=== PATIENT | female | born 1965 | race Caucasian/White ===

== ENCOUNTER 2021-06-29 04:06 | Inpatient (IN) | payer SELFPAY ==
[2021-06-29] VITALS (17 sets, daily range): BP systolic 94–133; BP diastolic 55–79; PULSE 68–96; RESP 16–27; TEMP 36.4–37.1; O2SAT 90–98; BMI 22.6; BMI 24.3
--- NOTE | 2021-06-29 04:08 | ECG_ITS ---
[facility] Test Date: 2021-06-29 Pat Name: Nicole Houston Department: Room: 252 Gender: Female Child And Family Therapist: : [id number] Requested By: Alejandrina Parker Order Number: [id number] Reading MD: oDnte Weller M.D. Measurements Intervals [place] Rate: 89 P: 12 IN: 122 QRS: 48 QRSD: 79 T: 52 QT: 378 QTc: 462 Interpretive Statements SINUS RHYTHM LOW QRS VOLTAGE IN PRECORDIAL LEADS [QRS DEFLECTION < 1.0 mV IN CHEST LEADS] No previous ECG available for comparison Electronically Signed On 06-29-2021 23:20:37 CDT by Donte Weller M.D. [id number]
--- NOTE | 2021-06-29 04:08 | XRR_ITS ---
PROCEDURE INFORMATION: Exam: XR Chest Exam date and time: 06/29/2021 4:20 AM Age: 55 years old Clinical indication: Patient HX: General weakness. Patient states she is dehydrated. Patient appears jaundiced. TECHNIQUE: Imaging protocol: XR of the chest. Views: 1 view. COMPARISON: No relevant prior studies available. FINDINGS: Lungs: Mildly increased lung markings. No consolidation. Pleural spaces: Unremarkable. No pleural effusion. No pneumothorax. Heart/Mediastinum: Unremarkable. No cardiomegaly. Bones/joints: Degenerative changes of the spine seen. Old healed rib fracture deformities are seen bilaterally. XR/XR chest 1V portable [id number] IMPRESSION: No evidence of active cardiopulmonary disease.
--- NOTE | 2021-06-29 04:19 | ED_ITS ---
HPI - Weakness General: Chief complaint: Weakness Stated complaint: DEHYDRATION Time Seen by Provider: 06/29/21 04:08 Source: patient and EMS Mode of arrival: EMS Limitations: no limitations History of Present Illness: 55-year-old female states that over the last few days she has been having increasing fatigue. She just feels very tired and generally weak. She states she is concerned she may have been dehydrated she was urinating more than typical. She does a appear quite pale here she denies any history of anemia. She denies any blood in her stool or vomitus denies any change in her stool color and has not had any black tarry stools. Associated symptoms: Denies chest pain, dysuria, easy bruising, headache(s), nausea or vomiting Review of Systems Const: Reports: fatigue and malaise Eyes: Denies: blurry vision or eye discomfort ENMT: Denies: throat pain or dental pain Card: Denies: chest pain Resp: Denies: dyspnea GI: Denies: abdominal pain, nausea, vomiting or diarrhea : Denies: dysuria Musc: Denies: neck pain or back pain Skin/Breast: Denies: rash Neuro: Denies: headache(s) Psych: Denies: depression Mehran/Lymph: Denies: easy bruising All/Imm: Denies: urticaria PFSH ED PFSH: Medical History (Updated 06/29/21 @ 04:47 by Alejandrina Parker MD) No pertinent past medical history Social History (Updated 06/29/21 @ 04:20 by Alejandrina Parker MD) Smoking and tobacco status: never smoked Substance/Drug Use: never Physical Exam Const: COMMON NORMALS: patient oriented x3 HENMT: COMMON NORMALS: normocephalic and atraumatic HEAD & SCALP: normocephalic and atraumatic Eye: COMMON NORMALS: Equal, round and reactive pupils present and EOMs intact bilaterally PUPIL: Yes Equal, round and reactive pupils present Neck/C-Spine: COMMON NORMALS: full ROM and supple Chest: COMMONS NORMALS: normal inspection of the chest and normal palpation of entire chest wall Resp: COMMON NORMALS: normal respiratory effort, No retractions, No use of accessory muscles and clear to auscultation bilaterally AUSCULTATION: clear to auscultation bilaterally Cardio: COMMON NORMALS: regular rate, regular rhythm and No murmurs present (Cardio) RATE: regular rate RHYTHM: regular rhythm GI: COMMON NORMALS: Normal to inspection, nondistended, normoactive bowel sounds present, Soft to palpation, non-tender and no masses PALPATION: Yes Soft to palpation Extremity: COMMON NORMALS: normal to inspection and full ROM Neuro: COMMON NORMALS: patient oriented x3, moves all extremities and no focal motor deficits Psych: COMMON NORMALS: mental status grossly normal, Normal thought process present and cooperative THOUGHT PROCESS: Normal thought process present Skin: COMMON NORMALS: no rashes or lesions noted and no wounds NARRATIVE SKIN EXAM: pale GENERAL SKIN EXAM: no rashes or lesions noted Course Vital Signs: Vital signs: Vital Signs Temperature 98.1 F 06/29/21 04:07 Pulse Rate 91 06/29/21 04:07 Respiratory Rate 20 H 06/29/21 04:07 Blood Pressure 105/62 06/29/21 04:07 Pulse Oximetry 90 06/29/21 04:07 MDM - Weakness Medical Decision Making The penisPatient presents here with generalized weakness she is found to be quite anemic with has had an elevated alk phos she has some abdominal distention on scan I am concerned she could have cancer we will CT her chest and abdomen I think her anemia is been chronic as her heart rate and blood pressure here is normal I spoke to hospitalist will admit we will transfuse her. Lab Data : 06/29/21 04:22 06/29/21 04:22 Laboratory Results WBC 23.6 10^3/uL (4.0-10.0) H 06/29/21 04:22 Corrected WBC 22.1 10^3/cmm (4.8-10.8) H 06/29/21 04:22 RBC 1.16 10^6/uL (4.1-5.3) L 06/29/21 04:22 Hgb 3.9 g/dL (11.5-15.3) L* 06/29/21 04:22 Hct 12.5 % (37.0-47.0) L* 06/29/21 04:22 MCV 107.8 fl (81-99) H 06/29/21 04:22 MCH 33.6 pg (28.0-34.0) 06/29/21 04:22 MCHC 31.2 g/dL (30.0-36.0) 06/29/21 04: RDW 23.2 % (12.1-15.1) H 06/29/21 04:22 Plt Count 39 10^3/cmm (130-400) L 06/29/21 04:22 MPV 12.0 fL (7.4-10.4) H 06/29/21 04:22 Lymph % (Auto) Not Reportable 06/29/21 04:22 [place] % (Auto) Not Reportable 06/29/21 04:22 Lymph # (Auto) Not Reportable 06/29/21 04:22 [place] # (Auto) Not Reportable 06/29/21 04:22 Total Counted 100 (0-100) 06/29/21 04: Atypical Lymphs % 1.0 % (0-5) 06/29/21 04: Absolute Neutrophils 11.1 10^3/cmm (1.4-6.5) H 06/29/21 04: Segmented Neutrophils 40 % 06/29/21 04: Abs Segm Neuts (Man) 9.4 10/cmm (1.6-7.1) H 06/29/21 04:22 Band Neutrophils 7.0 % 06/29/21 04:22 Abs Band Neuts (Man) 1.7 10^3/cmm (0.0-1.2) H 06/29/21 04:22 Absolute Lymphocytes 11.6 10^3/cmm (1.2-3.4) H 06/29/21 04:22 Lymphocytes (Manual) 48 % 06/29/21 04:22 Monocytes (Manual) 2.0 % 06/29/21 04: Absolute Monocytes 0.5 10^3/cmm (0.1-0.6) 06/29/21 04:22 Eosinophils (Manual) 2 % 06/29/21 04: Absolute Eosinophils 0.4 10^3/cmm (0.0-0.7) 06/29/21 04:22 Basophils (Manual) 0.0 % 06/29/21 04: Absolute Basophils 0.0 10^3/cmm (0.0-0.2) 06/29/21 04:22 Nucleated RBCs 7.0 /100WBC (0-1) H 06/29/21 04:22 Pathologist Review Cancelled 06/29/21 04:22 Smudge Cells Cancelled 06/29/21 04:22 Toxic Vacuolation Cancelled 06/29/21 04:22 Dohle Bodies Cancelled 06/29/21 04:22 Watson Rods Cancelled 06/29/21 04:22 Platelet Estimate Decreased (Normal) L 06/29/21 04:22 Giant Platelets Cancelled 06/29/21 04:22 Dimorphic RBCs Cancelled 06/29/21 04:22 Polychromasia Cancelled 06/29/21 04:22 Polychromasia Trace 06/29/21 04:22 Hypochromasia Cancelled 06/29/21 04:22 Hypochromasia Trace 06/29/21 04:22 Poikilocytosis Cancelled 06/29/21 04:22 Basophilic Stippling Cancelled 06/29/21 04:22 Anisocytosis 1+ H 06/29/21 04:22 Anisocytosis Cancelled 06/29/21 04:22 Microcytosis Cancelled 06/29/21 04:22 Macrocytosis Cancelled 06/29/21 04:22 Spherocytes Cancelled 06/29/21 04:22 Sickle Cells Cancelled 06/29/21 04:22 Target Cells Cancelled 06/29/21 04:22 Tear Drop Cells Cancelled 06/29/21 04:22 Ovalocytes Cancelled 06/29/21 04:22 Ovalocytes Trace 06/29/21 04:22 Stomatocytes Cancelled 06/29/21 04:22 Helmet Cells Cancelled 06/29/21 04:22 [place] Bodies Cancelled 06/29/21 04:22 [place] Cells Cancelled 06/29/21 04:22 Acanthocytes (Spur) Cancelled 06/29/21 04:22 Rouleaux Cancelled 06/29/21 04:22 Schistocytes Cancelled 06/29/21 04:22 Schistocytes Trace 06/29/21 04:22 PT 16.50 SECONDS (12.1-14.9) H 06/29/21 04:20 INR 1.29 (0.8-1.2) H 06/29/21 04:20 Sodium 133 mmol/L (136-145) L 06/29/21 04:22 Potassium 4.1 mmol/L (3.5-5.1) 06/29/21 04:22 Chloride 100 mmol/L (98-107) 06/29/21 04:22 Carbon Dioxide 19 mmol/L (22-29) L 06/29/21 04:22 Anion Gap 18.1 (5-19) 06/29/21 04:22 BUN 18 mg/dL (6-20) 06/29/21 04:22 Creatinine 0.7 mg/dL (0.5-0.9) 06/29/21 04:22 GFR Calculation 86.6 mL/min (90-130) L 06/29/21 04:22 Glucose 111 mg/dL (65-115) 06/29/21 04:22 Calculated Osmolality 279 mOsm/kg (285-295) L 06/29/21 04: Calcium 8.7 mg/dL (8.5-10.5) 06/29/21 04: Magnesium 2.3 mg/dL (1.7-2.3) 06/29/21 04: Total Bilirubin 0.8 mg/dL (0.15-1.2) 06/29/21 04: AST 89 U/L (0-32) H 06/29/21 04: ALT 42 U/L (0-33) H 06/29/21 04:22 Alkaline Phosphatase 520 IU/L (35-105) H 06/29/21 04: Total Protein 6.0 g/dL (6.6-8.7) L 06/29/21 04: Albumin 3.3 g/dL (3.5-5.2) L 06/29/21 04: Globulin 2.7 g/dL (1.3-4.6) 06/29/21 04: Lipase 35 U/L (13-60) 06/29/21 04:22 EKG Data EKG 1: I personally reviewed and interpreted this EKG as follows: EKG interpretation date: 06/29/21 EKG interpretation time: 04:17 Interpretation: nr hr [address] or t wave abnormalities qrs 79 qtc 425 Discharge Plan Discharge Patient Disposition: Admitted As Inpatient Clinical Impression: Anemia Coding Level of Care Code ED Ribbon Lap Machine Tender for Chg Fwd Exam Comprehensive
[2021-06-29] MEDS: sodium chloride 0.9% 1,000 ML 999 ML IV (04:25)
[2021-06-29 04:26] LABS: Mean Corpuscular HGB Conc 31.2 g/dL (30.0-36.0); Mean Corpuscular Hemoglobin 33.6 pg (28.0-34.0); Mean Corpuscular Volume 107.8 fl (81-99); Platelet Count 39 10^3/cmm (130-400); Red Blood Count 1.16 10^6/uL (4.1-5.3); Red Cell Distribution Width 23.2 % (12.1-15.1); White Blood Count 23.6 10^3/uL (4.0-10.0)
[2021-06-29 04:43] LABS: Add RBC Morph Yes; Hematocrit 12.5 % (37.0-47.0); Hemoglobin 3.9 g/dL (11.5-15.3)
[2021-06-29 04:44] LABS: Total Cells Counted 100 (0-100)
[2021-06-29 04:45] LABS: Absolute Eosinophils 0.4 10^3/cmm (0.0-0.7); Absolute Neutrophil 11.1 10^3/cmm (1.4-6.5); Absolute Segmented Neutrophil 9.4 10/cmm (1.6-7.1); Band Neutrophils Absolute 1.7 10^3/cmm (0.0-1.2); Corrected White Blood Count 22.1 10^3/cmm (4.8-10.8); Eosinophils 2 %; Lymphocytes 48 %; Lymphocytes Absolute 11.6 10^3/cmm (1.2-3.4); Monocytes Absolute 0.5 10^3/cmm (0.1-0.6); Platelet Estimate Decreased (Normal); Segmented Neutrophils 40 %
[2021-06-29 04:46] LABS: Alanine Aminotransferase 42 U/L (0-33); Albumin Level 3.3 g/dL (3.5-5.2); Alkaline Phosphatase 520 IU/L (35-105); Anion Gap 18.1 (5-19); Aspartate Amino Transferase 89 U/L (0-32); Blood Urea Nitrogen 18 mg/dL (6-20); Calcium 8.7 mg/dL (8.5-10.5); Carbon Dioxide 19 mmol/L (22-29); Chloride 100 mmol/L (98-107); Globulin 2.7 g/dL (1.3-4.6); Glomerular Filtration Rate 86.6 mL/min (90-130); Glucose 111 mg/dL (65-115); Lipase 35 U/L (13-60); Magnesium 2.3 mg/dL (1.7-2.3); Osmolality Calculated 279 mOsm/kg (285-295); Potassium 4.1 mmol/L (3.5-5.1); Sodium 133 mmol/L (136-145); Total Bilirubin 0.8 mg/dL (0.15-1.2)
--- NOTE | 2021-06-29 04:46 | CT_ITS ---
WS: [id number] Exam: CT abdomen pelvis wo con [id number] Date/Time of Exam: 06/29/2021 4:49 AM Reason For Exam: abdominal pain DLP: 1005.[address] scans at [facility] use at least one of these dose optimization techniques: automated e xposure control; mA and/or kV adjustment per patient size (includes targeted exams where dose is matc hed to clinical indication); or iterative reconstruction. Lower lung zones are clear. Small posterior left pleural effusion. Extensive osteolytic bone destruct ion involving the visualized lower rib cage, the thoracic and lumbar spine, the pelvis, both hips and upper femurs. Pathologic compression fractures of T11 and T12 without significant posterior displace ment. There is abdominal and pelvic ascites. There are multiple low-attenuation masses and nodules in the liver consistent with hepatic metastasis. The abdominal aorta is normal in caliber. Small hiatal hernia. Wall thickening of the stomach. The spleen is unremarkable. No obvious pancreatic lesion. 1. 5 cm left renal cyst. No sign of renal obstruction. Normal adrenal glands. Small bowel loops are not dilated. Moderate amount of stool in the colon. No obvious large bowel abnormality demonstrated. No s ign of acute appendix. 12.8 cm cystic central pelvic mass. A second more inferior posterior cystic pe lvic mass measures 7.5 cm at greatest diameter. Urinary bladder is intact but there is some mild comp ression of the urinary bladder. Pelvic ascites. No obvious pelvic lymphadenopathy. Questionable mildl y enlarged lymph node versus splenule along the medial aspect of the spleen. No free air. Unremarkabl e gallbladder. No significant abdominal wall defect. CT/CT abdomen pelvis wo con [id number] IMPRESSION: 1. Small posterior left-sided pleural effusion. 2. Extensive osteolytic bone destruction involving the visualized lower rib cag e, the thoracic, lumbar and sacral spine, the pelvis, both hips and both upper femurs. This almost surely represents extensive metastatic bone disease. Probab le pathologic compression fractures of T11 and T12. No posterior displacement. 2. Numerous low-attenuation nodules or masses in the liver suggesting metastasi s. Abdominal and pelvic ascites. 12.8 cm cystic mass in the central pelvis with a second more inferior septated cystic mass that measures 7.5 cm at greatest d iameter. Cystic ovarian malignancy might be of consideration. 4. Mildly enlarged lymph node versus splenule along the medial aspect of the sp radha. No other sign of obvious lymphadenopathy. 5. Stranding and nodularity identified within the mesenteric fat of the abdomen and pelvis which may represent carcinomatosis. 6. Wall thickening of the stomach. This could be due to underdistention however gastritis or gastric mass could have this appearance.
[2021-06-29 04:47] LABS: Anisocytosis 1+; Hypochromasia Trace; Ovalocytes Trace; Polychromasia Trace; Schistocytes Trace
[2021-06-29 04:48] LABS: INR 1.29 (0.8-1.2)
--- NOTE | 2021-06-29 05:02 | P.HP_ITS ---
Providers/Chief Complaint Chief Complaint: DEHYDRATION History of Present Illness Nicole Houston is a 55 year old female no significant past medical history presented with chief complaint of not able to walk. Patient is stating that for last 2 weeks she has been experiencing extreme weakness fatigue lethargy and inability to walk because of poor strength in her legs. Today she was not able to get up at all that prompted her visit to the ER. Patient is stating that in 2014 she was diagnosed with fibrocystic disease in [place] she refused treatment for her concerns related to false/fradulant biopsy report when mastectomy was recommended. She has been experiencing chronic back pain for last 1 year. She suffered from back injury when she fell on ice. She has been doctored by her cousin. She does not follow-up with PCP often. She has not noticed any black tarry stool, active GI bleed however endorsing recurrent epistaxis. She moved here a year ago and stating that her home is infested with multiple ticks. She does not take any medication other than few herbal supplements and Tylenol. She is also struggling with bladder control along constipation. Diagnosis in the ER revealed thrombocytopenia, anemia, abnormal liver enzymes, thrombocytosis with bandemia I have requested anemia work-up requested CT abdomen pelvis to rule out occult malignancy, requested DIC panel 2 unit PRBC has been requested She received 2 L of normal saline in the ER, she is hemodynamically stable Pale complexion She does not have cauda equina signs on physical exam is at the bedside Review of Systems Const: Reports: chills, body aches, change in appetite, fatigue and malaise Eyes: Denies: change in vision ENMT: Reports: dry mouth and epistaxis Card: Denies: chest pain Resp: Reports: dyspnea GI: Reports: nausea and constipation : Reports: dribbling; Denies: flank pain Musc: Denies: neck pain Skin/Breast: Denies: lesions Neuro: Reports: difficulty walking; Denies: headache(s) Psych: Denies: anxiety Endo: Denies: polyuria Mehran/Lymph: Reports: easy bruising and easy bleeding All/Imm: Denies: urticaria Medications/Allergies Allergies Allergy/AdvReac Type Severity Reaction Status Date / Time Sulfa (Sulfonamide Allergy ADR-Itching Verified 06/29/21 05:41 Antibiotics) PFSH Acute PFSH: Medical History (Updated 06/29/21 @ 06:23 by Molina Buenrostro MD) Back pain Fibrocystic breast disease No pertinent past medical history Surgical History (Updated 06/29/21 @ 06:23 by Molina Buenrostro MD) No pertinent past surgical history Social History (Updated 06/29/21 @ 04:20 by Alejandrina Parker MD) Smoking and tobacco status: never smoked Substance/Drug Use: never Vitals/I&O/Wt Last Vital Signs Temp 98.1 F 06/29/21 04:07 Pulse 91 06/29/21 04:07 Resp 20 H 06/29/21 04:07 BP 105/62 06/29/21 04:07 Pulse Ox 90 06/29/21 04:07 Weight last 48 hrs Weight 63.503 kg Physical Exam 2 Narrative: Extremely pale complexion female Pleasant and cooperative Hemodynamically stable Saturating well on room air No audible stridor or wheezing S1, S2 Abdomen soft, nontender Right breast nipple retracted No signs of cauda equina She is able to move all of her extremities Nonfocal neuro exam NIH 0 EOMI, PERRLA Pale complexion No signs of jaundice Data : 06/29/21 04:22 06/29/21 04:22 A&P Assessment and plan (1) Macrocytic anemia: Status: Acute (2) General weakness: Status: Acute (3) Abnormal transaminases: Status: Acute (4) Tick bite: Status: Acute Plan Severe macrocytic anemia Check B12, iron studies, folic level Check Nita test Check LDH haptoglobin Check lead level Requested DIC panel BUN normal, no signs of GI bleed For thrombocytopenia anemia I would like to rule out DIC versus TTP, considering abnormal coagulation profile TTP is unlikely. My concern related to cancer related DIC is high Requested PRBC Hemodynamically stable Check reticulocyte count Severe anemia contributing towards generalized weakness We will ask for peripheral smear for schistocytes Patient is endorsing tick bites, will add doxycycline Severe leukocytosis with bandemia MDS? I would request CT abdomen pelvis as he also has abnormal liver enzymes Check CEA level Afebrile Tick panel Fibrocystic disease Right breast nipple is retracted Apparently patient was recommended surgical intervention which is normally not recommended for fibrocystic disease, patient is stating that she refused treatment for her concerns related to false biopsy results [place] in 2015 Full code DVT prophylaxis SCDs Recurrent epistaxis related to thrombocytopenia Cardiac diet Attestations Medical Necessity Statement*: Anticipating discharge within 48 hours will need blood transfusion and work-up for her anemia Time Spent in Patient Care: 40mins Coding Level of Care Code Acute Web Communications Specialist for Anneg Fwd Diagnoses Macrocytic anemia D53.9 General weakness R53.1 Abnormal transaminases R74.8 Tick bite W57.XXXA
[2021-06-29 05:08] LABS: Iron 255 ug/dL (37-145)
[2021-06-29 06:10] LABS: Unsaturated Iron Binding < 17 ug/dL (112-347)
[2021-06-29] MEDS: sodium chloride 0.9% 250 ML 50 ML IV (06:15)
[2021-06-29 06:16] LABS: Reticulocyte % 3.8 % (0.5-2.0)
[2021-06-29 06:26] LABS: Lactate Dehydrogenase 512 U/L (135-214)
[2021-06-29 06:40] LABS: Fibrinogen 213 mg/dL (174-498); INR 1.25 (0.8-1.2); Partial Thromboplastin Time 35.1 SECONDS (23.9-36.7)
[2021-06-29 06:42] LABS: Carcinoembryonic Antigen 37.7 ng/mL (0.0-4.7)
[2021-06-29 06:43] LABS: Vitamin B12 > 2000 pg/mL (232-1245)
--- NOTE | 2021-06-29 06:56 | PC.NURSE ---
prbc verified with Ana Wilson @ [phone]
[2021-06-29 07:03] LABS: Folate Level > 20.0 ng/mL (4.8-37.3)
[2021-06-29 07:09] LABS: Tumor Marker Alpha Fetoprotein 2.4 ng/mL (0-8.3)
[2021-06-29 07:21] LABS: LAB Peripheral Smear Sent for Review
[2021-06-29 07:52] LABS: Ferritin 3889 ng/mL (15-150)
[2021-06-29] MEDS: doxycycline 100 mg Tablet PO ×2 (08:08→21:39)
[2021-06-29] MEDS: sennosides-docusate Tablet 1 TAB PO ×4 (08:12→21:39)
[2021-06-29] MEDS: sodium chloride 0.9% (100 ml) 100 ML (10:57)
--- NOTE | 2021-06-29 10:59 | PC.CHAP ---
Pastoral Care Encounter/Spiritual Assessment Type of Contact [] Declined restaurant greeter visit [] Patient/Family/Request visit [] Outpatient visit [] Follow-up visit [] Physician referral [] Code/Alert [x] Routine visit [] Staff referral [] Actively dying [] Patient sleeping [] Family support [] [] Out of room [] Palliative care [] [] Receiving care in room [] Pre-surgical visit [] Trauma [] Long length of stay [] ICU visit [] Other: Relational/Emotional Strength [x] Patient feels connected with others/family/visitors/staff [] Distress [] Loneliness/isolation [] Abandonment Spirituality of Patient [x] Person of Alice [] Attends Congregation of their Alice [x] Believes in Prayer [] Reads Bible or Mandaen materials [] There are Spiritual issues to be addressed Forestry Conservation Worker Interventions [x] Prayer x] Active listening [] Non-anxious presence [x] Spiritual/emotional support [] Crisis/trauma care [x] Spiritual counseling [] Bereavement support [] Provided bereavement packet [] Provided Bible/devotional materials [] Provided toy/stuffed animal, coloring book to patient or family member [] Provided Communion [] Anointing/[place] [] Salvation [x] Completed spiritual assessment [] Other: Impact on Illness or Injury [] Angry [] Fearful [] Anxious [] Often cries [] Exhaustion [] Unable to work [] Unable to attend spiritism [] Unable to walk/stand [] Unable to read [] Unable to drive [] Unable to eat/drink [] Unable to sleep [] Unable to be with family [] Patient intubated [] Other: Summary Time spent with patient 10 min
--- NOTE | 2021-06-29 11:18 | CT_ITS ---
WS: [id number] CT HEAD NONCONTRAST HISTORY: Possible metastatic disease. Dehydration and jaundice. TECHNIQUE: Contiguous axial imaging performed through the brain in 2.5 mm imaging. Bone and soft tiss ue windows. Sagittal and coronal reformats reviewed. All CT scans at [facility] use at least one of these dose optimization techniques: automated exposure control; mA and/or kV adjustment per pa tient size (includes targeted exams where dose is matched to clinical indication); or iterative recon struction. DLP: 827.08 mGy.cm COMPARISON: None available. No acute intracranial hemorrhage, midline shift or mass effect. No atrophy or prior infarcts or herniation. No edema or cytotoxic edema identified. No mass effect o r midline shift. Ventricles: Normal size with no hydrocephalus. Paranasal sinuses: As visualized are clear. Mastoid air cells: Well pneumatized. Calvarium and scalp: Extensive mixed lytic and sclerotic lesions are noted at the skull base. Abnorma l attenuation and a moth-eaten distribution in the skull base, clivus and at the foramen magnum and u pper cervical spine. Metastatic involvement also of the petrous bone. CT/CT head wo con* [id number] IMPRESSION: 1. No acute intracranial cerebral mass or hemorrhage identified. No midline sh ift. 2. Mixed lytic and sclerotic osseous metastatic lesions at the skull base invo lving the clivus, petrous ridges, foramen magnum and upper cervical spine.
--- NOTE | 2021-06-29 11:18 | CTR_ITS ---
PROCEDURE INFORMATION: Exam: CT Chest Without Contrast; Diagnostic Exam date and time: 06/29/2021 12:05 PM Age: 55 years old Clinical indication: Other: Dehydration jaundiced; Additional info: Possible mets TECHNIQUE: Imaging protocol: Diagnostic computed tomography of the chest without contrast. Radiation optimization: All CT scans at this facility use at least one of these dose optimization techniques: automated exposure control; mA and/or kV adjustment per patient size (includes targeted exams where dose is matched to clinical indication); or iterative reconstruction. COMPARISON: CR (CHEST, ) 06/29/2021 4:20 AM RADIATION DOSE METRICS: Total DLP (mGy-cm): 346.62 FINDINGS: Lungs: Bilateral dependent atelectasis. Pleural spaces: Trace bilateral pleural effusions Heart: Unremarkable. No cardiomegaly. No pericardial effusion. Lymph nodes: Unremarkable. No enlarged lymph nodes. Aorta: Unremarkable. No aortic aneurysm. Liver: Multifocal low-density lesions throughout the liver measuring up to at least 4.3 cm consistent with metastatic disease. Kidneys and ureters: Left kidney cyst, negative for follow-up advised. Intraperitoneal space: Moderate ascites in the upper abdomen. Bones/joints: Diffuse mixed lytic and sclerotic metastatic disease throughout the osseous structures. Soft tissues: Unremarkable. Other findings: . CT/CT chest wo con [id number] IMPRESSION: 1. Multifocal low-density lesions throughout the liver measuring up to at least 4.3 cm consistent with metastatic disease. 2. Diffuse mixed lytic and sclerotic metastatic disease throughout the osseous structures. 3. Moderate ascites in the upper abdomen. 4. Bilateral dependent atelectasis. 5. Trace bilateral pleural effusions 6. Left kidney cyst, negative for follow-up advised.
--- NOTE | 2021-06-29 11:22 | PM.PN ---
Subjective Subjective: Patient seen at bedside today with family. 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 Admitted overnight. We went over the labs in detail. Patient tells me that for last 3 weeks she has been feeling weak, unable to get up. She states she has been having these issues on and off since she fell in April 2020. She attributes these problems to autoimmune disorder and dehydration. Patient states she does not believe in medicine but is more herbalistic. He states she was told she had cancer in 2015 in [place] but never believed it because they were trying to be fraudulent with the report. She tells me she has been having occasional episodes of numbness in her feet for which she is going to a chiropractor who is trying to fix her back since her fall. States there have been episodes when she has had incontinence of urine especially when laying in bed. Denies any chest pain, difficulty in breathing, dizziness, bleeding. We went over the reports and CT scans in detail. We discussed that there is a high chance that she has cancer which is metastatic to bone and liver. Patient states is probably a hypothesis right now and not confirmed until proven by biopsy. Patient is not ready for biopsy right now and would like to think more. She is agreeable to CT chest and head without contrast 2. Vitals/I&O/Wt Last Vital Signs Temp 98.5 F 06/29/21 11:13 Pulse 90 06/29/21 11:13 Resp 27 H 06/29/21 11:13 BP 113/70 06/29/21 11:13 Pulse Ox 96 06/29/21 11:13 06/28/21 06/29/21 06/29/21 22:59 06:59 14:59 Intake Total 1000 / 1000 590 / 590 Balance 1000 / 1000 590 / 590 Weight last 48 hrs Weight 68.237 kg Weight 63.503 kg Physical Exam Narrative: General: No acute distress, AO x3, pallor present, HEENT: PERRLA, pupils bilaterally equal and reactive Chest: Normal vesicular breath sounds, no added sounds, equal good air entry bilaterally CVS: S1-S2 regular, soft pansystolic murmurs at apex no tachycardia, no gallops, no rubs Abdomen: Soft, nontender, soft mass present in lower quadrant bowel sounds present Neuro: No focal deficits, no facial deformity, AO x3, power 5/5 in all limbs Data : 06/29/21 04:22 06/29/21 04:22 Micro: Microbiology 06/29/21 10:53 Blood Culture - Preliminary Blood SPECIMEN COLLECTED A&P Assessment and plan (1) Macrocytic anemia: Status: Acute (2) Abnormal transaminases: Status: Acute (3) Hepatic metastasis: Status: Acute (4) Thrombocytopenia: Status: Acute (5) Bony metastasis: Status: Acute (6) Elevated d-dimer: Status: Acute (7) General weakness: Status: Acute (8) Tick bite: Patient does have anemia along with transaminitis. Started on doxycycline admission. Will check tick panel. Status: Acute Plan Severe symptomatic anemia: Ordered 2 units of blood transfusion. Low haptoglobin, elevated D-dimer, iron panel consistent with anemia of chronic disease, elevated LDH and liver enzymes distant with a possible hemolytic anemia. Most likely chronic given patient is hemodynamically stable without tachycardia or desaturation. Vitamin B12, folate levels appropriate. DIC panel normal secondary to normal fibrinogen. FDP levels awaited. Trace schistocytes. Thrombocytopenia Leukocytosis: Infectious cause unlikely. Most likely reactive to severe anemia and thrombocytopenia. Check blood culture. For now hold off on antibiotics. Transaminitis: Most likely secondary to hepatic metastasis along with osteolytic bone disorder along with possible hemolytic anemia. Though hemolytic anemia unlikely because bilirubin is within normal limits. Will check HIV and hepatitis panel. Bony metastasis/hepatic metastasis: Most likely primary is ovarian cancer. Patient does not believe in cancer. Is agreeable for CT chest and head without contrast. Still thinking about biopsy. Apparently patient was recommended surgical intervention which is normally not recommended for fibrocystic disease, patient is stating that she refused treatment for her concerns related to false biopsy results [place] in 2015 Full code DVT prophylaxis SCDs Recurrent epistaxis related to thrombocytopenia Cardiac diet Attestations Medical Necessity Statement*: Requires further hospitalization for management of severe symptomatic anemia requiring multiple blood transfusion, thrombocytopenia Nicole WesleyCarmelaAlex is being changed to inpatient status as stay will now exceed 2 midnights. Ongoing hospital care is necessary for severe symptomatic anemia requiring multiple blood transfusion, thrombocytopenia Time Spent in Patient Care: Greater than 35 minutes Coding Level of Care Code Acute Social Media Job Titles for Chg Fwd Diagnoses Macrocytic anemia D53.9 General weakness R53.1 Abnormal transaminases R74.8 Tick bite W57.XXXA Hepatic metastasis C78.7 Thrombocytopenia D69.6 Elevated d-dimer R79.89 Bony metastasis C79.51
[2021-06-29 16:56] LABS: Add Urine Microscopic? NO; Charge for UA Resulting for Rev
[2021-06-29 17:12] LABS: Mean Corpuscular HGB Conc 33.5 g/dL (30.0-36.0); Mean Corpuscular Volume 86.6 fl (81-99); Mean Platelet Volume 10.3 fL (7.4-10.4); Platelet Count 33 10^3/cmm (130-400); Red Blood Count 2.24 10^6/uL (4.1-5.3); Red Cell Distribution Width 25.4 % (12.1-15.1); White Blood Count 17.8 10^3/uL (4.0-10.0)
[2021-06-29 17:17] LABS: Bilirubin Urine Neg (Negative); Blood Urine Neg (Negative); Glucose Urine UA Norm (Normal); Ketones Urine Negative (Negative); Leukocyte Esterase Urine Negative (Negative); Nitrate Urine Negative (Negative); Protein Urine Neg (Negative); Specific Gravity, Urine 1.005 (1.005-1.030); Urine Appearance Clear (CLEAR); Urine Color Yellow (Yellow); Urobilinogen Urine Norm (Negative); pH Urine 7 (5-7)
[2021-06-29 17:21] LABS: Hematocrit 19.4 % (37.0-47.0); Hemoglobin 6.5 g/dL (11.5-15.3)
[2021-06-29 17:42] LABS: Total Cells Counted 100 (0-100)
[2021-06-29 17:43] LABS: Absolute Eosinophils 0.8 10^3/cmm (0.0-0.7); Absolute Neutrophil 24.4 10^3/cmm (1.4-6.5); Absolute Segmented Neutrophil 17.8 10/cmm (1.6-7.1); Anisocytosis 2+; Band Neutrophils Absolute 6.6 10^3/cmm (0.0-1.2); Eosinophils 5 %; Hypochromasia 1+; Lymphocytes 11 %; Lymphocytes Absolute 2.8 10^3/cmm (1.2-3.4); Monocytes Absolute 7.8 10^3/cmm (0.1-0.6); Platelet Estimate Decreased (Normal); Segmented Neutrophils 100 %
--- NOTE | 2021-06-29 21:19 | PC.NURSE ---
Blood transfusion Difficulty scanning blood product resulting in product being started after 20m issued abbie. Lab notified and states that it is okay to go ahead and start the blood as long as it finishes within the 4hr abbie .
[2021-06-30] VITALS: BP 126/82; PULSE 90; RESP 17; TEMP 37.2; O2SAT 93
[2021-06-30 04:00] VITALS: BP 142/84; PULSE 97; RESP 20; TEMP 36.8; O2SAT 94
[2021-06-30 05:55] LABS: Basophils # 0.2 10^3/uL (0.0-0.1); Basophils % 0.9 %; Eosinophils # 0.1 10^3/uL (0.0-0.8); Eosinophils % 0.7 %; Hematocrit 23.4 % (37.0-47.0); Hemoglobin 7.7 g/dL (11.5-15.3); Lymphocytes # 6.5 10^3/uL (0.8-4.8); Lymphocytes % 38.6 %; Mean Corpuscular HGB Conc 32.9 g/dL (30.0-36.0); Mean Corpuscular Hemoglobin 28.8 pg (28.0-34.0); Mean Corpuscular Volume 87.6 fl (81-99); Monocytes # 1.4 10^3/uL (0.2-0.9); Monocytes % 8.2 %; Neutrophils # 7.18 10^3/uL (1.8-7.7); Neutrophils % 42.6 %; Nucleated Red Blood Cells # 0.8 /100WBC; Nucleated Red Blood Cells % 4.9 %; Red Blood Count 2.67 10^6/uL (4.1-5.3); Red Cell Distribution Width 24.7 % (12.1-15.1); White Blood Count 16.9 10^3/uL (4.0-10.0)
[2021-06-30 05:57] VITALS: PULSE 94
[2021-06-30 06:11] LABS: Alanine Aminotransferase 42 U/L (0-33); Alkaline Phosphatase 528 IU/L (35-105); Aspartate Amino Transferase 143 U/L (0-32); Blood Urea Nitrogen 14 mg/dL (6-20); Calcium 8.3 mg/dL (8.5-10.5); Carbon Dioxide 19 mmol/L (22-29); Chloride 96 mmol/L (98-107); Globulin 3.2 g/dL (1.3-4.6); Glomerular Filtration Rate 127.6 mL/min (90-130); Glucose 99 mg/dL (65-115); Magnesium 2.2 mg/dL (1.7-2.3); Osmolality Calculated 263 mOsm/kg (285-295); Sodium 126 mmol/L (136-145); Total Bilirubin 1.9 mg/dL (0.15-1.2); Total Protein 6.2 g/dL (6.6-8.7)
[2021-06-30 06:27] LABS: Slide Review Slide Review Perform
[2021-06-30 06:32] LABS: Platelet Count 27 10^3/cmm (130-400)
[2021-06-30 07:23] VITALS: BP 132/70; PULSE 81; RESP 16; TEMP 36.8; O2SAT 97
[2021-06-30 08:00] VITALS: PULSE 90; RESP 16; O2SAT 92
--- NOTE | 2021-06-30 11:20 | PC.NURSE ---
Lab called stated they needed a stool sample on pt. Nurse notifed
[2021-06-30 12:00] VITALS: BP 128/76; PULSE 76; RESP 18; TEMP 36.8; O2SAT 98
--- NOTE | 2021-06-30 13:06 | PM.DCS ---
Discharge Providers Date of Admission: 06/29/21 05:04 Date of Discharge: June 30, 2021 Attending Provider at Admission: Molina Buenrostro MD Attending Provider at Discharge: Santos Russ MD Diagnoses at Discharge Discharge Diagnosis (1) Macrocytic anemia: Status: Acute (2) Abnormal transaminases: Status: Acute (3) Hepatic metastasis: Status: Acute (4) Thrombocytopenia: Status: Acute (5) Bony metastasis: Status: Acute (6) Elevated d-dimer: Status: Acute (7) General weakness: Status: Acute (8) Tick bite: Status: Acute Reason for Visit Reason for Visit: DEHYDRATION Brief History: History as per HPI: Nicole Houston is a 55 year old female no significant past medical history presented with chief complaint of not able to walk.? Patient is stating that for last 2 weeks she has been experiencing extreme weakness fatigue lethargy and inability to walk because of poor strength in her legs.? Today she was not able to get up at all that prompted her visit to the ER.? Patient is stating that in 2014 she was diagnosed with fibrocystic disease in [place] she refused treatment for her concerns related to false/fradulant biopsy report when mastectomy was recommended.? She has been experiencing chronic back pain for last 1 year.? She suffered from back injury when she fell on ice.? She has been doctored by her cousin.? She does not follow-up with PCP often.? She has not noticed any black tarry stool, active GI bleed however endorsing recurrent epistaxis.? She moved here a year ago and stating that her home is infested with multiple ticks.? She does not take any medication other than few herbal supplements and Tylenol.? She is also struggling with bladder control along constipation. Diagnosis in the ER revealed thrombocytopenia, anemia, abnormal liver enzymes, thrombocytosis with bandemia I have requested anemia work-up requested CT abdomen pelvis to rule out occult malignancy, requested DIC panel Hospital Course Hospital Course Patient admitted to the hospital further evaluation and management of severe anemia, thrombocytopenia, transaminitis. She was given overall 3 units of blood transfusion. Her blood work was consistent with severe anemia with a hemoglobin of 3.9 on admission, thrombocytopenia, transaminitis, elevated D-dimer with a normal iron panel suggestive of anemia of chronic disease, low haptoglobin and LDH elevated CEA. Patient underwent CT chest abdomen pelvis which is consistent with possibility of liver metastasis with multiple bony osteolytic destruction of bilateral ribs, spine, hip and femur. Findings and a possibility of malignancy leading to hemolytic anemia were discussed in detail with the patient and was counseled over 2 days multiple times. Patient verbalized understanding but for now does not believe that she has malignancy and would want to try herbal medications going forward. She denied for biopsy. She has been discharged in hemodynamically stable condition on oral iron tablets with advised to follow-up with primary care provider for possible biopsy as an outpatient. As per patient's request lab work has been provided to the patient. Physical Exam Narrative: General: No acute distress, AO x3, pallor present, HEENT: PERRLA, pupils bilaterally equal and reactive Chest: Normal vesicular breath sounds, no added sounds, equal good air entry bilaterally CVS: S1-S2 regular, soft pansystolic murmurs at apex no tachycardia, no gallops, no rubs Abdomen: Soft, nontender, soft mass present in lower quadrant bowel sounds present Neuro: No focal deficits, no facial deformity, AO x3, power 5/5 in all limbs Discharge Data Studies Completed and Pending Completed Studies During Hospitalization Category Date Time Status CT abdomen pelvis wo con [id number] Urgent Cat Scan 06/29/21 04:[address] chest wo con [id number] Routine Cat Scan 06/29/21 11:[address] head wo con* [id number] Routine Cat Scan 06/29/21 11:18 Completed XR chest 1V portable [id number] Urgent Exams 06/29/21 04:08 Completed Pending at discharge Category Date Time Status Blood Culture Stat Lab 06/29/21 15:00 Results Clostridioides Difficile PCR Routine Lab 06/29/21 10:19 Ordered Enteric Bacterial Panel by PCR Routine Lab 06/29/21 10:19 Ordered Enteric Parasite Panel by PCR Routine Lab 06/29/21 10:19 Ordered Immunochemical Fecal OCB Routine Lab 06/29/21 10:19 Ordered Lactoferrin Routine Lab 06/29/21 10:19 Ordered Lead Serum Stat Lab 06/29/21 05:44 Received Miscellaneous Test Stat Lab 06/29/21 05:44 Received Tick Panel Stat Lab 06/29/21 05:44 Received Radiology Impressions Chest X-Ray 06/29/21 04:08 IMPRESSION: No evidence of active cardiopulmonary disease. Abdomen/Pelvis CT 06/29/21 04:46 IMPRESSION: 1. Small posterior left-sided pleural effusion. 2. Extensive osteolytic bone destruction involving the visualized lower rib cage, the thoracic, lumbar and sacral spine, the pelvis, both hips and both upper femurs. This almost surely represents extensive metastatic bone disease. Probable pathologic compression fractures of T11 and T12. No posterior displacement. 2. Numerous low-attenuation nodules or masses in the liver suggesting metastasis. Abdominal and pelvic ascites. 12.8 cm cystic mass in the central pelvis with a second more inferior septated cystic mass that measures 7.5 cm at greatest diameter. Cystic ovarian malignancy might be of consideration. 4. Mildly enlarged lymph node versus splenule along the medial aspect of the spleen. No other sign of obvious lymphadenopathy. 5. Stranding and nodularity identified within the mesenteric fat of the abdomen and pelvis which may represent carcinomatosis. 6. Wall thickening of the stomach. This could be due to underdistention however gastritis or gastric mass could have this appearance. Chest CT 06/29/21 11:18 IMPRESSION: 1. Multifocal low-density lesions throughout the liver measuring up to at least 4.3 cm consistent with metastatic disease. 2. Diffuse mixed lytic and sclerotic metastatic disease throughout the osseous structures. 3. Moderate ascites in the upper abdomen. 4. Bilateral dependent atelectasis. 5. Trace bilateral pleural effusions 6. Left kidney cyst, negative for follow-up advised. Head CT 06/29/21 11:18 IMPRESSION: 1. No acute intracranial cerebral mass or hemorrhage identified. No midline shift. 2. Mixed lytic and sclerotic osseous metastatic lesions at the skull base involving the clivus, petrous ridges, foramen magnum and upper cervical spine. Laboratory Results WBC 16.9 10^3/uL (4.0-10.0) H 06/30/21 04:25 Corrected WBC 22.1 10^3/cmm (4.8-10.8) H 06/29/21 04:22 RBC 2.67 10^6/uL (4.1-5.3) L 06/30/21 04:25 Hgb 7.7 g/dL (11.5-15.3) L 06/30/21 04:25 Hct 23.4 % (37.0-47.0) L 06/30/21 04:25 MCV 87.6 fl (81-99) 06/30/21 04:25 MCH 28.8 pg (28.0-34.0) 06/30/21 04:25 MCHC 32.9 g/dL (30.0-36.0) 06/30/21 04:25 RDW 24.7 % (12.1-15.1) H 06/30/21 04:25 Plt Count 27 10^3/cmm (130-400) L* 06/30/21 04:25 MPV Not Reportable 06/30/21 04:25 Neut % (Auto) 42.6 % 06/30/21 04:25 Lymph % (Auto) 38.6 % 06/30/21 04:25 [place] % (Auto) 8.2 % 06/30/21 04:25 Eos % (Auto) 0.7 % 06/30/21 04:25 Baso % (Auto) 0.9 % 06/30/21 04:25 Reticulocyte % (Auto) 3.8 % (0.5-2.0) H 06/29/21 05:44 Neut # (Auto) 7.18 10^3/uL (1.8-7.7) 06/30/21 04:25 Lymph # (Auto) 6.5 10^3/uL (0.8-4.8) H 06/30/21 04:25 [place] # (Auto) 1.4 10^3/uL (0.2-0.9) H 06/30/21 04:25 Eos # (Auto) 0.1 10^3/uL (0.0-0.8) 06/30/21 04:25 Baso # (Auto) 0.2 10^3/uL (0.0-0.1) H 06/30/21 04:25 Nucleated RBC % (auto) 4.9 % 06/30/21 04:25 Total Counted 100 (0-100) 06/29/21 16:50 Atypical Lymphs % 5.0 % (0-5) 06/29/21 16:50 Absolute Neutrophils 24.4 10^3/cmm (1.4-6.5) H 06/29/21 16:50 Segmented Neutrophils 100 % 06/29/21 16:50 Abs Segm Neuts (Man) 17.8 10/cmm (1.6-7.1) H 06/29/21 16:50 Band Neutrophils 37.0 % 06/29/21 16:50 Abs Band Neuts (Man) 6.6 10^3/cmm (0.0-1.2) H 06/29/21 16:50 Absolute Lymphocytes 2.8 10^3/cmm (1.2-3.4) 06/29/21 16:50 Lymphocytes (Manual) 11 % 06/29/21 16:50 Monocytes (Manual) 44.0 % 06/29/21 16:50 Absolute Monocytes 7.8 10^3/cmm (0.1-0.6) H 06/29/21 16:50 Eosinophils (Manual) 5 % 06/29/21 16:50 Absolute Eosinophils 0.8 10^3/cmm (0.0-0.7) H 06/29/21 16:50 Basophils (Manual) 0.0 % 06/29/21 16:50 Absolute Basophils 0.0 10^3/cmm (0.0-0.2) 06/29/21 16:50 Metamyelocytes 2.0 % 06/29/21 16:50 Nucleated RBCs 2.0 /100WBC (0-1) H 06/29/21 16:50 Nucleated RBCs # 0.8 /100WBC 06/30/21 04:25 Pathologist Review Cancelled 06/29/21 04:22 Smudge Cells Cancelled 06/29/21 04:22 Toxic Vacuolation Cancelled 06/29/21 04:22 Dohle Bodies Cancelled 06/29/21 04:22 Watson Rods Cancelled 06/29/21 04:22 Platelet Estimate Decreased (Normal) L 06/29/21 16:50 Giant Platelets Cancelled 06/29/21 04:22 Dimorphic RBCs Cancelled 06/29/21 04:22 Polychromasia Cancelled 06/29/21 04:22 Polychromasia Trace 06/29/21 04:22 Hypochromasia 1+ H 06/29/21 16:50 Poikilocytosis Cancelled 06/29/21 04:22 Basophilic Stippling Cancelled 06/29/21 04:22 Anisocytosis 2+ H 06/29/21 16:50 Microcytosis Cancelled 06/29/21 04:22 Macrocytosis Cancelled 06/29/21 04:22 Spherocytes Cancelled 06/29/21 04:22 Sickle Cells Cancelled 06/29/21 04:22 Target Cells Cancelled 06/29/21 04:22 Tear Drop Cells Cancelled 06/29/21 04:22 Ovalocytes Cancelled 06/29/21 04:22 Ovalocytes Trace 06/29/21 04:22 Stomatocytes Cancelled 06/29/21 04:22 Helmet Cells Cancelled 06/29/21 04:22 [place] Bodies Cancelled 06/29/21 04:22 [place] Cells Cancelled 06/29/21 04:22 Acanthocytes (Spur) Cancelled 06/29/21 04:22 Rouleaux Cancelled 06/29/21 04:22 Schistocytes Cancelled 06/29/21 04:22 Schistocytes Trace 06/29/21 04:22 Haptoglobin 10.0 mg/L (30-200) L 06/29/21 05:44 PT 16.00 SECONDS (12.1-14.9) H 06/29/21 05:44 INR 1.25 (0.8-1.2) H 06/29/21 05:44 APTT 35.1 SECONDS (23.9-36.7) 06/29/21 05:44 Fibrinogen 213 mg/dL (174-498) 06/29/21 05:44 Fibrin Degrad Products TNP 06/29/21 05:44 D-Dimer 18.90 ug/mIFEU (0-0.59) H 06/29/21 05:44 Sodium 126 mmol/L (136-145) L 06/30/21 04:25 Potassium 4.0 mmol/L (3.5-5.1) 06/30/21 04:25 Chloride 96 mmol/L (98-107) L 06/30/21 04:25 Carbon Dioxide 19 mmol/L (22-29) L 06/30/21 04:25 Anion Gap 15.0 (5-19) 06/30/21 04:25 BUN 14 mg/dL (6-20) 06/30/21 04:25 Creatinine 0.5 mg/dL (0.5-0.9) 06/30/21 04:25 GFR Calculation 127.6 mL/min (90-130) 06/30/21 04:25 Glucose 99 mg/dL (65-115) 06/30/21 04:25 Calculated Osmolality 263 mOsm/kg (285-295) L 06/30/21 04:25 Calcium 8.3 mg/dL (8.5-10.5) L 06/30/21 04:25 Magnesium 2.2 mg/dL (1.7-2.3) 06/30/21 04:25 Iron 255 ug/dL (37-145) H 06/29/21 04:22 TIBC 271.61327 mcg/dl 06/29/21 04:22 % Saturation 93.0 % (20-50) H 06/29/21 04:22 Unsat Iron Binding < 17 ug/dL (112-347) L 06/29/21 04:22 Ferritin 3889 ng/mL (15-150) H 06/29/21 05:44 Total Bilirubin 1.9 mg/dL (0.15-1.2) H 06/30/21 04:25 AST 143 U/L (0-32) H 06/30/21 04:25 ALT 42 U/L (0-33) H 06/30/21 04:25 Alkaline Phosphatase 528 IU/L (35-105) H 06/30/21 04:25 Lactate Dehydrogenase 512 U/L (135-214) H 06/29/21 05:44 Total Protein 6.2 g/dL (6.6-8.7) L 06/30/21 04:25 Albumin 3.0 g/dL (3.5-5.2) L 06/30/21 04:25 Globulin 3.2 g/dL (1.3-4.6) 06/30/21 04:25 Lipase 35 U/L (13-60) 06/29/21 04:22 Tumor Marker AFP 2.4 ng/mL (0-8.3) 06/29/21 05:44 Carcinoembryonic Ag 37.7 ng/mL (0.0-4.7) H 06/29/21 05:44 Vitamin B12 > 2000 pg/mL (232-1245) H 06/29/21 05:44 Folate > 20.0 ng/mL (4.8-37.3) 06/29/21 05:44 Urine Color Yellow (Yellow) 06/29/21 15:45 Urine Appearance Clear (CLEAR) 06/29/21 15:45 Urine pH 7 (5-7) 06/29/21 15:45 Ur Specific [place] 1.005 (1.005-1.030) 06/29/21 15:45 Urine Protein Neg (Negative) 06/29/21 15:45 Urine Glucose (UA) Norm (Normal) 06/29/21 15:45 Urine Ketones Negative (Negative) 06/29/21 15:45 Urine Blood Neg (Negative) 06/29/21 15:45 Urine Nitrate Negative (Negative) 06/29/21 15:45 Urine Bilirubin Neg (Negative) 06/29/21 15:45 Urine Urobilinogen Norm mg/dL (Negative) 06/29/21 15:45 Ur Leukocyte Esterase Negative (Negative) 06/29/21 15:45 Blood Type O Positive 06/29/21 04:50 Rho(D) Type Positive 06/29/21 04:50 Antibody Screen Negative 06/29/21 04:50 ELIUD, Poly Interpret Negative 06/29/21 05:44 Crossmatch See Detail 06/29/21 04:50 Vitals Last Vital Signs Temp 98.3 F 06/30/21 12:00 Pulse 76 06/30/21 12:00 Resp 18 06/30/21 12:00 BP 128/76 06/30/21 12:00 Pulse Ox 98 06/30/21 12:00 Discharge Plan Discharge Patient Disposition: Home Condition: Stable Prescriptions: New doxycycline monohydrate 100 mg Tablet 100 mg PO BID Qty: 10 0RF Continued Fish Oil 1,200 (144-216) mg Capsule 1,200 cap PO DAILY 0RF multivitamin Tablet 1 tab PO DAILY 0RF Vitamin C 1,000 mg Tablet 500 mg PO DAILY 0RF Tylenol 325 mg Tablet 650 mg PO QID PRN (Reason: Pain) 0RF zinc 50 mg Tablet 50 mg PO DAILY 0RF Vitamin D3 25 mcg (1,000 unit) Capsule 25 mcg PO DAILY 0RF Discharge Orders: Discharge Order (Routine); Ordered 06/30/21 Ordered By: Santos Russ Discharge Diet: Usual diet Discharge Activity: Resume usual activity and Increase activity as tolerated Patient Instructions: Opioid Safety Activity Restrictions/Additional Instructions: Please follow-up with your primary care provider for a possible biopsy as an outpatient. I discussed in detail with chances of malignancy is high. Please consider biopsy. Because of multiple bony destruction please try to avoid chiropractor treatment because that can aggravate pain and even lead to vertebral fractures. Please avoid herbal supplements because of poor knowledge of cross-reactivity, side effect profile given severe hemolytic anemia, transaminitis. Discharge Attestations Time Spent in Discharge Care*: greater than 30 min Specific Discharge Activities: educating patient, educating and/or supporting family/caregiver, discussing with nurse outreach case manager/social workers/dc planners, documenting/other paperwork and evaluating patient/reviewing data Status at Discharge: Cognitive status at discharge: cognitively intact, Behavioral status at discharge: cooperative, Functional status at discharge: other assisted ambulation, Overall status at discharge: patient is back to baseline Quality Metrics Clinical Quality Measures [ No reported AMI, CVA or VTE this stay] Coding Level of Care Code Acute g DC note Diagnoses Macrocytic anemia D53.9 Abnormal transaminases R74.8 Hepatic metastasis C78.7 Thrombocytopenia D69.6 Bony metastasis C79.51 Elevated d-dimer R79.89 General weakness R53.1 Tick bite W57.XXXA
[2021-07-02 15:52] LABS: Lyme AB Screen <0.90 index
[2021-07-02 17:02] LABS: E. Chaffeensis AB IGG <1:64; E. Chaffeensis AB IGM <1:20
[2021-07-03 18:23] LABS: RMSF IGG NOT DETECTED; RMSF IGM NOT DETECTED
== END 2021-06-30 15:04 | disposition home or self-care (01) | DRG 813 ==
LOC: ER 05:14 → MEDSURG 06:03
PROVIDERS: Admitting Provider Internal Medicine; Emergency Provider Emergency Medicine; Visit Provider Student in an Organized Health Care Education/Training Program
DX: D69.6 Thrombocytopenia, unspecified (principal); E84.9 Cystic fibrosis, unspecified; C78.7 Secondary malignant neoplasm of liver and intrahepatic bile duct; C79.51 Secondary malignant neoplasm of bone; D63.8 Anemia in other chronic diseases classified elsewhere; E86.0 Dehydration; G89.29 Other chronic pain; M54.9 Dorsalgia, unspecified; D75.839 Thrombocytosis, unspecified; C80.1 Malignant (primary) neoplasm, unspecified; R74.01 Elevation of levels of liver transaminase levels; T14.8XXA Other injury of unspecified body region, initial encounter; W57.XXXA Bitten or stung by nonvenomous insect and other nonvenomous arthropods, initial encounter; D72.825 Bandemia; R97.0 Elevated carcinoembryonic antigen [CEA]
CPT/HCPCS: 36415; 36430; 70450; 71045; 71250; 74176; 80053; 80503; 81003; 82105; 82378; 82607; 82728; 82746; 83010; 83540; 83550; 83615; 83655; 83690; 83735; 85007; 85025; 85027; 85045; 85378; 85384; 85610; 85730; 86618; 86666; 86757; 86850; 86880; 86900; 86920; 87040; 93005; 96361; 96374; 99285; J7030; J7050; P9016

== ENCOUNTER 2021-07-22 15:38 | Emergency (ER) | payer SELFPAY ==
--- NOTE | 2021-07-22 15:42 | XRR_ITS ---
PROCEDURE INFORMATION: Exam: XR Chest Exam date and time: 07/22/2021 4:52 PM Age: 55 years old Clinical indication: Device placement; Other: Et and ng placement; Additional info: AMS TECHNIQUE: Imaging protocol: XR of the chest. Views: 1 view. COMPARISON: CT chest wo con [id number] 06/29/2021 12:05 PM FINDINGS: Tubes, catheters and devices: NG tube terminates in the stomach. Endotracheal tube terminates 9.2 cm above the narciso at the level of T1-T2. Lungs: No evident consolidation. Support devices overlying the left chest slightly limits evaluation of these regions. Pleural spaces: No pleural effusion. No pneumothorax. Heart/Mediastinum: No cardiomegaly. Bones/joints: Lytic and sclerotic lesions throughout the visualized osseous structures consistent with metastatic disease. No acute findings. XR/XR chest 1V portable [id number] IMPRESSION: Proper positioning of support devices.
--- NOTE | 2021-07-22 15:42 | CTR_ITS ---
PROCEDURE INFORMATION: Exam: CT Head Without Contrast Exam date and time: 07/22/2021 5:35 PM Age: 55 years old Clinical indication: Altered mental status/memory loss; Confusion or disorientation; Additional info: AMS TECHNIQUE: Imaging protocol: Computed tomography of the head without contrast. Radiation optimization: All CT scans at this facility use at least one of these dose optimization techniques: automated exposure control; mA and/or kV adjustment per patient size (includes targeted exams where dose is matched to clinical indication); or iterative reconstruction. COMPARISON: CT head wo con* [id number] 06/29/2021 12:00 PM RADIATION DOSE METRICS: Total DLP (mGy-cm): 766.26 FINDINGS: Brain: No hemorrhage. No edema. No significant white matter disease. No mass effect. Cerebral ventricles: No ventriculomegaly. Paranasal sinuses: Visualized sinuses are unremarkable. No fluid levels. Mastoid air cells: Visualized mastoid air cells are well aerated. Bones/joints: Unremarkable. No acute fracture. Soft tissues: Unremarkable. CT/CT head wo con* [id number] IMPRESSION: No acute intracranial abnormality.
--- NOTE | 2021-07-22 15:42 | ECG_ITS ---
[facility] Test Date: 2021-07-22 Pat Name: Nicole Houston Department: Room: Gender: Female Occupational Physician: : [id number] Requested By: Dina Corbett Order Number: [id number] Suzanne MD: Gwendolyn Rossi M.D. Measurements Intervals [place] Rate: 51 P: 73 SD: 139 QRS: 36 QRSD: 109 T: -9 QT: 463 QTc: 428 Interpretive Statements SINUS BRADYCARDIA NONSPECIFIC T-WAVE ABNORMALITY Compared to ECG 06/29/2021 04:17:35 T-wave abnormality now present Sinus rhythm no longer present Electronically Signed On 07-23-2021 17:39:28 CDT by Gwendolyn Rossi M.D. [id number]
[2021-07-22 15:45] VITALS: PULSE 51; RESP 25; TEMP 29.9; BMI 21.3
[2021-07-22 15:52] LABS: ABG PCO2 23.3 mmHg (35-45); Blood Gas Allen Test Pos; Blood Gas Operator Identificat MONRO; Blood Gas Sample Site Brachial, right; Blood Gas Sample Type Arterial; HCO3 ABG 3.8 mmol/L (22-26); Oxygen Device ROOM AIR; PO2 ABG 10.4 mmHg (80.0-100.0)
--- NOTE | 2021-07-22 16:26 | ED_ITS ---
HPI - Altered Mental Status General: Chief Complaint: Altered Mental Status Stated Complaint: UNRESPONSIVE Time Seen by Provider: 07/22/21 15:40 PFS ED PFSH: Medical History (Updated 07/01/21 @ 00:01 by ) Back pain Fibrocystic breast disease No pertinent past medical history Surgical History (Updated 06/29/21 @ 06:23 by Molina Buenrostro MD) No pertinent past surgical history Social History (Updated 06/29/21 @ 04:20 by Alejandrina Parekr MD) Smoking and tobacco status: never smoked Course Vital Signs: Vital signs: Vital Signs Temperature 85.9 F L 07/22/21 15:45 Pulse Rate 51 L 07/22/21 15:45 Respiratory Rate 25 H 07/22/21 15:45 Discharge Plan Discharge Condition: Stable Prescriptions: No Action Fish Oil 1,200 (144-216) mg Capsule 1,200 cap PO DAILY 0RF multivitamin Tablet 1 tab PO DAILY 0RF Vitamin C 1,000 mg Tablet 500 mg PO DAILY 0RF Tylenol 325 mg Tablet 650 mg PO QID PRN (Reason: Pain) 0RF zinc 50 mg Tablet 50 mg PO DAILY 0RF Vitamin D3 25 mcg (1,000 unit) Capsule 25 mcg PO DAILY 0RF doxycycline monohydrate 100 mg Tablet 100 mg PO BID Qty: 10 0RF Referrals: Maggie Moyer MD [Primary Care Provider] - Coding Level of Care Code ED Project Construction Manager for Aimee Robertson
[2021-07-22 16:29] VITALS: RESP 20
--- NOTE | 2021-07-22 16:41 | CTR_ITS ---
PROCEDURE INFORMATION: Exam: CTA Chest With Contrast Exam date and time: 07/22/2021 5:40 PM Age: 55 years old Clinical indication: Condition or disease; Cancer; Unknown; Additional info: Hypotension, significant lactic acidosis AMS TECHNIQUE: Imaging protocol: Computed tomographic angiography of the chest with contrast. 3D rendering (Not supervised by radiologist): MIP and/or 3D reconstructed images were created and reviewed. COMPARISON: CT abdomen pelvis [facility] [id number] 06/29/2021 5:55 AM FINDINGS: Tubes, catheters and devices: Unremarkable endotracheal tube position. Enteric tube within stomach. Pulmonary arteries: Normal. No pulmonary emboli. Aorta: Unremarkable. No aortic aneurysm. No aortic dissection. Lungs: Patchy irregular ground-glass lesions in each lobe of both lungs with left upper lobe predominance. Diffuse bronchial wall thickening. No peripheral honeycombing. No central airway obstruction. Pleural spaces: Unremarkable. No pneumothorax. No pleural effusion. Heart: Unremarkable. No cardiomegaly. No pericardial effusion. Lymph nodes: Unremarkable. No enlarged lymph nodes. Bones/joints: Pathologic compression fracture deformities of T11 and T12. No retropulsion. Unremarkable thoracic spine alignment. Soft tissues: Spiculated soft tissue density with calcifications in the right breast with retraction of the right nipple. Other findings: Extensive widespread osseous metastatic disease. PROCEDURE INFORMATION: Exam: CTA Abdomen and Pelvis With Contrast Exam date and time: 07/22/2021 5:40 PM Age: 55 years old Clinical indication: Condition or disease; Cancer; Unknown; Additional info: Hypotension, significant lactic acidosis AMS TECHNIQUE: Imaging protocol: Computed tomographic angiography of the abdomen and pelvis with contrast material. 3D rendering (Not supervised by radiologist): MIP and/or 3D reconstructed images were created by the technologist. Radiation optimization: All CT scans at this facility use at least one of these dose optimization techniques: automated exposure control; mA and/or kV adjustment per patient size (includes targeted exams where dose is matched to clinical indication); or iterative reconstruction. Contrast material: VISIPAQUE 320; Contrast volume: 95 ml; Contrast route: INTRAVENOUS (IV); COMPARISON: CT abdomen pelvis [facility] [id number] 06/29/2021 5:55 AM RADIATION DOSE METRICS: Total DLP (mGy-cm): 1918.19 FINDINGS: Aorta: No aortic aneurysm. No aortic dissection. Celiac trunk and mesenteric arteries: No occlusion or significant stenosis. Renal arteries: No occlusion or significant stenosis. Right iliac arteries: No occlusion or significant stenosis. Left iliac arteries: No occlusion or significant stenosis. Left femoral/popliteal arteries: Contrast blush in the left groin soft tissues which arises from the proximal left superficial femoral artery with decreased caliber size of the artery consistent with vaso spasm. Suspect iatrogenic injury from the adjacent central venous catheter placement which extends into the proximal left femoral vein and terminates in the left external iliac vein. Liver: Innumerable hypoattenuating lesions throughout the liver. Gallbladder and bile ducts: Unremarkable. No calcified stones. No ductal dilation. Pancreas: Unremarkable. No mass. No ductal dilation. Spleen: Unremarkable. No splenomegaly. Adrenal glands: Unremarkable. No mass. Kidneys and ureters: Simple bilateral renal cortical cysts. No renal stones. Mildly dilated collecting systems. Stomach and bowel: Unremarkable. No obstruction. No mucosal thickening. Appendix: No evidence of appendicitis. Intraperitoneal space: Scattered small to moderate volume abdominopelvic free fluid. Smooth peritoneal enhancement in the pelvis. No free intraperitoneal air. Lymph nodes: Unremarkable. No enlarged lymph nodes. Urinary bladder: Bladder decompressed. Vaughan catheter in the bladder. Reproductive: Unremarkable as visualized. Bones/joints: Widespread osseous metastatic disease changes. Pathologic fractures in the right pubic rami with no significant displacement. Hip joints are aligned. Lumbar spinal alignment is anatomic. Slight superior endplate compression deformity of L1. Soft tissues: There is hemorrhage in the left groin. Other findings: Multiple circumscribed cystic masses in both anterior and posterior pelvis with no change from prior. Large anterior cystic mass spans 10.3 cm x 11 cm. Septated posterior pelvic cystic mass spans about 6.4 cm transverse by 4.[address]/CT angio chest abdomen pelvis IMPRESSION: 1. Negative for pulmonary embolism. 2. Scattered airspace disease throughout both lungs representing nonspecific pneumonia features. 3. Very extensive osseous metastatic disease. IMPRESSION: 1. Iatrogenic injury proximal left superficial femoral artery with active contrast extravasation and large left groin hematoma. 2. No intra-abdominal hemorrhage. 3. Third spacing of fluid. 4. Multiple cystic pelvic masses. 5. Innumerable liver lesions. 6. Extensive osseous metastatic disease.
[2021-07-22 17:01] LABS: Troponin(5th) Baseline 41 ng/L (0-10)
[2021-07-22 17:07] LABS: Acetaminophen 8.8 ug/mL (10-30); Free T4 Free Thyroxine 0.88 ng/dL (0.82-1.77); Salicylate 0.5 mg/dL (3-10); Thyroid Stimulating Hormone 8.62 uIU/mL (0.27-4.20)
[2021-07-22 17:13] LABS: Ammonia 134 umol/L (11-51)
[2021-07-22 17:15] LABS: ABG PH Result 6.82 (7.35-7.45)
[2021-07-22 17:19] LABS: Partial Thromboplastin Time 79.5 SECONDS (23.9-36.7)
[2021-07-22 17:19] LABS: Lactate (Lactic Acid level) 22.3 mmol/L (0.5-2.2)
[2021-07-22 17:21] LABS: Creatine Phosphokinase 3471 U/L (26-192)
--- NOTE | 2021-07-22 17:23 | ED_ITS ---
HPI - General Adult General: Chief complaint: Altered Mental Status Stated complaint: UNRESPONSIVE Time Seen by Provider: 07/22/21 15:40 History of Present Illness: 55-year-old female with a history of fibrocystic breast disease, recent admission to the hospital 06/30 for fatigue presenting to the emergency room for concerns of hypotension and hypothermia, agonal breathing and unresponsiveness. Patient was accompanied by her GCS of 3. Fingerstick of 226. with would like everything done for the patient. Review of Systems General: Reports: ROS unobtainable due to medical condition and ROS unobtainable due to mental status PFSH ED PFSH: Medical History Acidosis Back pain Fibrocystic breast disease No pertinent past medical history Surgical History No pertinent past surgical history Social History Smoking and tobacco status: never smoked Physical Exam Const: EXAM LIMITATIONS: altered mental status HENMT: OTHER: + Mouth gaping, nonreactive pupils Neck/C-Spine: COMMON NORMALS: supple Resp: OTHER: + Tachypnea coarse breath sound Cardio: OTHER: Sinus bradycardia GI: OTHER: No focal TTP. NO guarding rebound, guarding, rigidity. : OTHER: no visible lesions Neuro: PUPIL EXAM: Mid position: bilateral OTHER: GCS of 3, not responsive, not moving extremities Psych: OTHER: unable to asess given mentation Procedures Central Line Placement Left Femoral: Time Out Performed: Yes Patient Placed on Monitor/Pulse Ox: Yes Prep: mask, gown and gloves Central Line Prep: Chlorhexidine scrub and sterile drapes applied Ultrasound Used for Placement: Yes Central Line Lumen Inserted: triple Post Procedure: sutured in place, good blood return, all ports aspirated, flushed, capped and sterile dressing applied Post Procedure X-Ray: tip of catheter in good position Patient Tolerated Procedure: well Complications: other (+bleeding from the incision site) Additional Comments: While performing central line, patient was noted to have significantly compressible femoral artery and vein. Initially was very difficult to distinguish femoral artery and vein since both very compressible. The introducer needle transiently entered the L femoral artery before retracting ba ck and successfully cannulating L femoral vein. Repeat CT scan showed iatrogenic injury of hte proximal L superficial femoral artery. Pressure was immediately applied over the pelvic binder. Intubation Time out performed: Yes sedative: Etomidate Mg Given: 20 Laryngoscope: Scotty ET Tube Size: 7.5 ET Tube Uncuffed: No Tube Secured Depth (cm): 19 Tube Secured Location: lips Tube Placement Confirmation: visualized tube passing through cords, equal breath sounds bilaterally, no breath sounds over epigastrium and confirmation by capnometry Intubation Complications: none Additional Comments: ET-tube was advanced to centimeters by respiratory therapy after repeat XR chest Course Vital Signs: Vital signs: Vital Signs Temperature 85.9 F L 07/22/21 15:45 Pulse Rate 51 L 07/22/21 15:45 Respiratory Rate 20 H 07/22/21 16:29 MDM - General Adult Medical Decision Making 55-year-old female full code with history of fibrocystic breast disease presenting to the emergency room for altered mental status, hypothermia, agonal breathing and hypotension. On arrival, patient was noted to have a blood pressure of 70/20. Patient was also noted to be bradycardic to the 40s. Given her critical illness, patient received 2 L of fluid and started on an epi drip. Shortly after arrival, patient was noted to have 1 minute of seizure and then went into cardiac arrest. CPR was performed at 5317-2714. Patient received 1 round of epi and 1 amp of bicarb and obtained ROSC. Intubation was performed using sedative agent only since pH was 6.8 on arrival and there is significant concern for periintubation cardiac arrest. Because the severity of the patient encounter and critical need for access (since patient only had 1 IO and 1 peripheral IV) needing multiple drips including pressors in accordance with family wishes for full code, decision was made to start a central line prior to labs returning. Central line was placed with complication of accidentally inserting introducer needle into the femoral artery due femoral artery and vein were virtually indistinguishbly by compression or US evaluation in the light significant hypotension. This was discussed with family. Patient on fentanyl and propofol drip. Patient received empiric antibiotics vancomycin and cefepime. Lactic acid of 22. Patient had a temperature initially of 88.7. Despite Padmini hugger, temperature continues to be similar. Initial pH of 6.8 decreased to 6.799. Labs consistent with DIC, will provide fibrinogen and PCC which were ordered. Cryoprecepitates and FFP were also ordered. Patient is switched from an epinephrine drip to a norepinephrine drip. Hemoglobin of 1.8, 5u of blood products were ordered. CT scan showed mild volume of active extravasation of the SFA w/ groin hematoma L from accidental introducer needle insertion into the L SFA during a central line procedure. Significant pressure in pelvic binder has been applied. Left thigh compartments and the groin do not appear to be tense or significantly enlarged. No active extravasation noted other than mild intermittent trickling of blood from around the L central line insertion site. We were planning to repeat CT scan in 15 minutes to ensure the hematoma is not expanding and consult appropriate providers. However, patient's decided to make patient comfort care with Dr. Krishna prior to the repeat CT evaluation and declined repeat imaging studies at this time. Patient was terminally extubated by Dr. Krishna. Electric Melt Operator service was at bedside providing spiritual care to family. Patient was noted in asystole and was pronounced at 6:59pm. Lab Data : 07/22/21 15:55 07/22/21 15:55 Radiology Impressions Chest X-Ray 07/22/21 15:42 IMPRESSION: Proper positioning of support devices. Head CT 07/22/21 15:42 IMPRESSION: No acute intracranial abnormality. Chest/Abdomen/Pelvis CTA 07/22/21 16:41 IMPRESSION: 1. Negative for pulmonary embolism. 2. Scattered airspace disease throughout both lungs representing nonspecific pneumonia features. 3. Very extensive osseous metastatic disease. IMPRESSION: 1. Iatrogenic injury proximal left superficial femoral artery with active contrast extravasation and large left groin hematoma. 2. No intra-abdominal hemorrhage. 3. Third spacing of fluid. 4. Multiple cystic pelvic masses. 5. Innumerable liver lesions. 6. Extensive osseous metastatic disease. ADDENDUM: 07/22/21 [id number] THIS REPORT CONTAINS FINDINGS THAT MAY BE CRITICAL TO PATIENT CARE. The findings were verbally communicated via telephone conference with DINA CORBETT at 6:29 PM CDT on 07/22/2021. The findings were acknowledged and understood. Mild volume of active contrast blush from the lateral side of the proximal left SFA with no formed pseudoaneurysm. Diffuse fluid and fat stranding changes throughout the left groin as a result. Laboratory Results WBC 24.9 10^3/uL (4.0-10.0) H 07/22/21 15:55 RBC 0.56 10^6/uL (4.1-5.3) L 07/22/21 15:55 Hgb 1.8 g/dL (11.5-15.3) L* 07/22/21 15:55 Hct 6.8 % (37.0-47.0) L* 07/22/21 15:55 MCV 121.4 fl (81-99) H 07/22/21 15:55 MCH 32.1 pg (28.0-34.0) 07/22/21 15:55 MCHC 26.5 g/dL (30.0-36.0) L 07/22/21 15:55 RDW Not Reportable 07/22/21 15:55 Plt Count 28 10^3/cmm (130-400) L* 07/22/21 15:55 MPV Not Reportable 07/22/21 15:55 Neut % (Auto) 32.4 % 07/22/21 15:55 Lymph % (Auto) 59.3 % 07/22/21 15:55 Angelina % (Auto) 3.0 % 07/22/21 15:55 Eos % (Auto) 0.2 % 07/22/21 15:55 Baso % (Auto) 0.1 % 07/22/21 15:55 Neut # (Auto) 8.06 10^3/uL (1.8-7.7) H 07/22/21 15:55 Lymph # (Auto) 14.8 10^3/uL (0.8-4.8) H 07/22/21 15:55 Angelina # (Auto) 0.8 10^3/uL (0.2-0.9) 07/22/21 15:55 Eos # (Auto) 0.1 10^3/uL (0.0-0.8) 07/22/21 15:55 Baso # (Auto) 0.0 10^3/uL (0.0-0.1) 07/22/21 15:55 Nucleated RBC % (auto) 5.3 % 07/22/21 15:55 Nucleated RBCs # 1.3 /100WBC 07/22/21 15:55 PT 57.90 SECONDS (12.1-14.9) H 07/22/21 16:48 INR 6.64 (0.8-1.2) H* 07/22/21 16:48 APTT 79.5 SECONDS (23.9-36.7) H 07/22/21 16:48 Fibrinogen 51 mg/dL (174-498) L 07/22/21 17:49 Specimen Type Arterial 07/22/21 17:10 Sample Site Radial, right 07/22/21 17:10 ABG pH 6.80 (7.35-7.45) L* 07/22/21 17:10 ABG pCO2 22.9 mmHg (35-45) L 07/22/21 17:10 ABG pO2 537.0 mmHg (80.0-100.0) H 07/22/21 17:10 ABG HCO3 3.6 mmol/L (22-26) L 07/22/21 17:10 Mc Test Pos 07/22/21 17:10 O2 Delivery Device Vent 07/22/21 17:10 FiO2 100.0 % 07/22/21 17:10 Tidal Volume 0.38 07/22/21 17:10 PEEP 6.0 cmH20 07/22/21 17:10 Sky Diver ID Manoj 07/22/21 17:10 Sodium 126 mmol/L (136-145) L 07/22/21 15:55 Potassium 6.4 mmol/L (3.5-5.1) H 07/22/21 15:55 Chloride 89 mmol/L (98-107) L 07/22/21 15:55 Carbon Dioxide 3 mmol/L (22-29) L* 07/22/21 15:55 Anion Gap 40.4 (5-19) H 07/22/21 15:55 BUN 66 mg/dL (6-20) H 07/22/21 15:55 Creatinine 1.3 mg/dL (0.5-0.9) H 07/22/21 15:55 GFR Calculation 42.4 mL/min (90-130) L 07/22/21 15:55 Glucose 161 mg/dL (65-115) H 07/22/21 15:55 POC Glucose 211 mg/dL (70-110) H 07/22/21 16:09 Calculated Osmolality 285 mOsm/kg (285-295) 07/22/21 15:55 Lactate 22.3 mmol/L (0.5-2.2) H* 07/22/21 15:55 Calcium 8.1 mg/dL (8.5-10.5) L 07/22/21 15:55 Total Bilirubin 1.4 mg/dL (0.15-1.2) H 07/22/21 15:55 AST 404 U/L (0-32) H 07/22/21 15:55 ALT 79 U/L (0-33) H 07/22/21 15:55 Alkaline Phosphatase 786 IU/L (35-105) H 07/22/21 15:55 Ammonia 134 umol/L (11-51) H 07/22/21 16:48 Creatine Kinase 3471 U/L (26-192) H* 07/22/21 15:55 Troponin T Baseline 41 ng/L (0-10) H 07/22/21 15:55 Troponin T 120 Minute 42.20 ng/L (0-10) H 07/22/21 17:49 Delta Troponin T 1.20 ABS# (0-10) 07/22/21 17:49 Total Protein 5.9 g/dL (6.6-8.7) L 07/22/21 15:55 Albumin 3.3 g/dL (3.5-5.2) L 07/22/21 15:55 Globulin 2.6 g/dL (1.3-4.6) 07/22/21 15:55 Lipase 164 U/L (13-60) H 07/22/21 15:55 TSH 8.62 uIU/mL (0.27-4.20) H 07/22/21 15:55 Free T4 0.88 ng/dL (0.82-1.77) 07/22/21 15:55 Random Cortisol 45.84 ug/dL (2.47-19.5) H 07/22/21 15:55 Urine Color Yellow (Yellow) 07/22/21 16:37 Urine Appearance Clear (CLEAR) 07/22/21 16:37 Urine pH 5 (5-7) 07/22/21 16:37 Ur Specific Squires 1.020 (1.005-1.030) 07/22/21 16:37 Urine Protein Neg (Negative) 07/22/21 16:37 Urine Glucose (UA) Norm (Normal) 07/22/21 16:37 Urine Ketones Negative (Negative) 07/22/21 16:37 Urine Blood Neg (Negative) 07/22/21 16:37 Urine Nitrate Negative (Negative) 07/22/21 16:37 Urine Bilirubin Neg (Negative) 07/22/21 16:37 Urine Urobilinogen Norm mg/dL (Negative) 07/22/21 16:37 Ur Leukocyte Esterase Negative (Negative) 07/22/21 16:37 Salicylates 0.5 mg/dL (3-10) L 07/22/21 15:55 Acetaminophen 8.8 ug/mL (10-30) L 07/22/21 15:55 Imaging Data Other Imaging: Radiologist's impression: [address] [address] [address] Scan Report Signed with Addenda Patient: Nicole Houston Unit #: [id number] : 1965 Age/Sex: 55 / F ADM Date: 07/22/21 Loc: ICU Room/Bed: [place] [address]: Francois Krishna MD Ordering Provider/Ordering MD: Dina Corbett MD Date of Service: 07/22/21 Procedure(s): CT angio chest abdomen pelvis Accession Number(s): [id number] Report Number: [id number]/CT angio chest abdomen pelvis THIS REPORT CONTAINS FINDINGS THAT MAY BE CRITICAL TO PATIENT CARE. The findings were verbally communicated via telephone conference with DINA CORBETT at 6:29 PM CDT on 07/22/2021. The findings were acknowledged and understood. ? ? Mild volume of active contrast blush from the lateral side of the proximal left SFA with no formed pseudoaneurysm.? Diffuse fluid and fat stranding changes throughout the left groin as a result. ? Addendum Dictated By: ?Jan Angel Addendum Signed By: ?Jan Angel Signed Date/Time: 07/22/211831 Addendum Cosigned By: ? PROCEDURE INFORMATION: Exam: CTA Chest With Contrast Exam date and time: 07/22/2021 5:40 PM Age: 55 years old Clinical indication: Condition or disease; Cancer; Unknown; Additional info: Hypotension, significant lactic acidosis AMS TECHNIQUE: Imaging protocol: Computed tomographic angiography of the chest with contrast. 3D rendering (Not supervised by radiologist): MIP and/or 3D reconstructed images were created and reviewed. COMPARISON: CT abdomen pelvis [facility] [id number] 06/29/2021 5:55 AM FINDINGS: Tubes, catheters and devices: Unremarkable endotracheal tube position. Enteric tube within stomach. Pulmonary arteries: Normal. No pulmonary emboli. Aorta: Unremarkable. No aortic aneurysm. No aortic dissection. Lungs: Patchy irregular ground-glass lesions in each lobe of both lungs with left upper lobe predominance. Diffuse bronchial wall thickening. No peripheral honeycombing. No central airway obstruction. Pleural spaces: Unremarkable. No pneumothorax. No pleural effusion. Heart: Unremarkable. No cardiomegaly. No pericardial effusion. Lymph nodes: Unremarkable. No enlarged lymph nodes. Bones/joints: Pathologic compression fracture deformities of T11 and T12. No retropulsion. Unremarkable thoracic spine alignment. Soft tissues: Spiculated soft tissue density with calcifications in the right breast with retraction of the right nipple. Other findings: Extensive widespread osseous metastatic disease. PROCEDURE INFORMATION: Exam: CTA Abdomen and Pelvis With Contrast Exam date and time: 07/22/2021 5:40 PM Age: 55 years old Clinical indication: Condition or disease; Cancer; Unknown; Additional info: Hypotension, significant lactic acidosis AMS TECHNIQUE: Imaging protocol: Computed tomographic angiography of the abdomen and pelvis with contrast material. 3D rendering (Not supervised by radiologist): MIP and/or 3D reconstructed images were created by the technologist. Radiation optimization: All CT scans at this facility use at least one of these dose optimization techniques: automated exposure control; mA and/or kV adjustment per patient size (includes targeted exams where dose is matched to clinical indication); or iterative reconstruction. Contrast material: VISIPAQUE 320; Contrast volume: 95 ml; Contrast route: INTRAVENOUS (IV);? COMPARISON: CT abdomen pelvis [facility] [id number] 06/29/2021 5:55 AM RADIATION DOSE METRICS: Total DLP (mGy-cm): 1918.19 FINDINGS: Aorta: No aortic aneurysm. No aortic dissection. Celiac trunk and mesenteric arteries: No occlusion or significant stenosis. Renal arteries: No occlusion or significant stenosis. Right iliac arteries: No occlusion or significant stenosis. Left iliac arteries: No occlusion or significant stenosis. Left femoral/popliteal arteries: Contrast blush in the left groin soft tissues which arises from the proximal left superficial femoral artery with decreased caliber size of the artery consistent with vaso spasm. Suspect iatrogenic injury from the adjacent central venous catheter placement which extends into the proximal left femoral vein and terminates in the left external iliac vein. Liver: Innumerable hypoattenuating lesions throughout the liver. Gallbladder and bile ducts: Unremarkable. No calcified stones. No ductal dilation. Pancreas: Unremarkable. No mass. No ductal dilation. Spleen: Unremarkable. No splenomegaly. Adrenal glands: Unremarkable. No mass. Kidneys and ureters: Simple bilateral renal cortical cysts. No renal stones. Mildly dilated collecting systems. Stomach and bowel: Unremarkable. No obstruction. No mucosal thickening. Appendix: No evidence of appendicitis. Intraperitoneal space: Scattered small to moderate volume abdominopelvic free fluid. Smooth peritoneal enhancement in the pelvis. No free intraperitoneal air. Lymph nodes: Unremarkable. No enlarged lymph nodes. Urinary bladder: Bladder decompressed. Vaughan catheter in the bladder. Reproductive: Unremarkable as visualized. Bones/joints: Widespread osseous metastatic disease changes. Pathologic fractures in the right pubic rami with no significant displacement. Hip joints are aligned. Lumbar spinal alignment is anatomic. Slight superior endplate compression deformity of L1. Soft tissues: There is hemorrhage in the left groin. Other findings: Multiple circumscribed cystic masses in both anterior and posterior pelvis with no change from prior. Large anterior cystic mass spans 10.3 cm x 11 cm. Septated posterior pelvic cystic mass spans about 6.4 cm transverse by 4.[address]/CT angio chest abdomen pelvis IMPRESSION: 1. Negative for pulmonary embolism. 2. Scattered airspace disease throughout both lungs representing nonspecific pneumonia features. 3. Very extensive osseous metastatic disease. ? ? IMPRESSION: 1. Iatrogenic injury proximal left superficial femoral artery with active contrast extravasation and large left groin hematoma. 2. No intra-abdominal hemorrhage. 3. Third spacing of fluid. 4. Multiple cystic pelvic masses. 5. Innumerable liver lesions. 6. Extensive osseous metastatic disease. ? Dictated By: Frame,Jan Signed By: Jan Angel Signed Date/Time: 07/22/211810 DD/ 1740 Launch?[facility] [employer] [address] [place], [place] [address] CT Scan Report Signed Patient: Nicole Houston Unit #: [id number] : 1965 Age/Sex: 55 / F ADM Date: 07/22/21 Loc: ER Room/Bed: Attending Dr: Ordering Provider/Ordering MD: Dina Corbett MD Date of Service: 07/22/21 Procedure(s): CT head wo con* [id number] Accession Number(s): [id number] Report Number: [id number] PROCEDURE INFORMATION: Exam: CT Head Without Contrast Exam date and time: 07/22/2021 5:35 PM Age: 55 years old Clinical indication: Altered mental status/memory loss; Confusion or disorientation; Additional info: AMS TECHNIQUE: Imaging protocol: Computed tomography of the head without contrast. Radiation optimization: All CT scans at this facility use at least one of these dose optimization techniques: automated exposure control; mA and/or kV adjustment per patient size (includes targeted exams where dose is matched to clinical indication); or iterative reconstruction. COMPARISON: CT head wo con* [id number] 06/29/2021 12:00 PM RADIATION DOSE METRICS: Total DLP (mGy-cm): 766.26 FINDINGS: Brain: No hemorrhage. No edema. No significant white matter disease. No mass effect. Cerebral ventricles: No ventriculomegaly. Paranasal sinuses: Visualized sinuses are unremarkable. No fluid levels. Mastoid air cells: Visualized mastoid air cells are well aerated. Bones/joints: Unremarkable. No acute fracture. Soft tissues: Unremarkable. CT/CT head wo con* [id number] IMPRESSION: No acute intracranial abnormality. ? Dictated By: Alcon Torres DO Signed By: Alcon Torres DO Signed Date/Time: 07/22/211800 DD/ [address] [facility] [address] [place] [address]. [place] [address] XRay Report Signed Patient: Nicole Houston Unit #: [id number] : 1965 Age/Sex: 55 / F ADM Date: 07/22/21 Loc: ER Room/Bed: Attending Dr: Ordering Provider/Ordering MD: Dina Corbett MD Date of Service: 07/22/21 Procedure(s): XR chest 1V portable [id number] Accession Number(s): [id number] Report Number: [id number] PROCEDURE INFORMATION: Exam: XR Chest Exam date and time: 07/22/2021 4:52 PM Age: 55 years old Clinical indication: Device placement; Other: Et and ng placement; Additional info: AMS TECHNIQUE: Imaging protocol: XR of the chest. Views: 1 view. COMPARISON: CT chest [facility] [address] 06/29/2021 12:05 PM FINDINGS: Tubes, catheters and devices: NG tube terminates in the stomach. Endotracheal tube terminates 9.2 cm above the narciso at the level of T1-T2. Lungs: No evident consolidation. Support devices overlying the left chest slightly limits evaluation of these regions. Pleural spaces: No pleural effusion. No pneumothorax. Heart/Mediastinum: No cardiomegaly. Bones/joints: Lytic and sclerotic lesions throughout the visualized osseous structures consistent with metastatic disease. No acute findings. XR/XR chest 1V portable [id number] IMPRESSION: Proper positioning of support devices. ? Dictated By: Alcon Torres DO Signed By: Alcon Torres DO Signed Date/Time: 07/22/211807 DD/ 51 Critical Care Time Critical Care Time: Critical Care Time: Yes Total Critical Care Time: 40 Attestation: The high probability of a clinically significant, sudden or life threatening deterioration of the patient's hematological system(s) required my full and direct attention, intervention and personal management. The critical care time is as shown. This time is in addition to time spent performing any reported procedures but includes the following: [x] Data and vital sign review and interpretation [x] Patient assessment, examination and intervention [x] Documentation [x] Medication orders and management Discharge Plan Discharge Patient Disposition: Clinical Impression: Altered mental status, Hypothermia, Hypotension, Acidemia, Bleeding diathesis, Acidosis, lactic Condition: Stable Prescriptions: No Action Levaquin 500 mg Tablet 500 mg PO DAILY 0RF omega 8-bom-dgf-fish oil [Fish Oil] 1,200 (144-216) mg Capsule 1,200 cap PO DAILY 0RF multivitamin Tablet 1 tab PO DAILY 0RF ascorbic acid (vitamin C) [Vitamin C] 1,000 mg Tablet 500 mg PO DAILY 0RF acetaminophen [Tylenol] 325 mg Tablet 650 mg PO QID PRN (Reason: Pain) 0RF zinc 50 mg Tablet 50 mg PO DAILY 0RF cholecalciferol (vitamin D3) [Vitamin D3] 25 mcg (1,000 unit) Capsule 25 mcg PO DAILY 0RF Referrals: Maggie Moyer MD [Primary Care Provider] - Coding Level of Care Code ED Hybrid Technologist for Chg Fwd Exam Expanded Problem Focused
[2021-07-22 17:28] LABS: Fibrinogen 74 mg/dL (174-498)
[2021-07-22 17:33] LABS: Add Urine Microscopic? NO; Charge for UA Resulting for Rev
[2021-07-22 17:37] LABS: Bilirubin Urine Neg (Negative); Blood Urine Neg (Negative); Glucose Urine UA Norm (Normal); Ketones Urine Negative (Negative); Leukocyte Esterase Urine Negative (Negative); Nitrate Urine Negative (Negative); Protein Urine Neg (Negative); Urine Appearance Clear (CLEAR); Urine Color Yellow (Yellow); Urobilinogen Urine Norm (Negative); pH Urine 5 (5-7)
[2021-07-22 17:41] LABS: Basophils % 0.1 %; Eosinophils # 0.1 10^3/uL (0.0-0.8); Eosinophils % 0.2 %; Lymphocytes # 14.8 10^3/uL (0.8-4.8); Lymphocytes % 59.3 %; Mean Corpuscular HGB Conc 26.5 g/dL (30.0-36.0); Mean Corpuscular Hemoglobin 32.1 pg (28.0-34.0); Mean Corpuscular Volume 121.4 fl (81-99); Monocytes # 0.8 10^3/uL (0.2-0.9); Neutrophils # 8.06 10^3/uL (1.8-7.7); Neutrophils % 32.4 %; Nucleated Red Blood Cells # 1.3 /100WBC; Nucleated Red Blood Cells % 5.3 %; Red Blood Count 0.56 10^6/uL (4.1-5.3); White Blood Count 24.9 10^3/uL (4.0-10.0)
--- NOTE | 2021-07-22 17:42 | ECG_ITS ---
[facility] Test Date: 2021-07-22 Pat Name: Nicole Houston Department: Room: Gender: Female Primary Teacher: : 1965 Requested By: Dina Corbett Order Number: [id number] Reading MD: Gwendolyn Rossi M.D. Measurements Intervals [place] Rate: 56 P: 67 VA: 135 QRS: 60 QRSD: 104 T: 89 QT: 432 QTc: 419 Interpretive Statements SINUS BRADYCARDIA NONSPECIFIC T-WAVE ABNORMALITY Compared to ECG 07/22/2021 15:50:25 No significant changes Electronically Signed On 07-23-2021 17:43:42 CDT by Gwendolyn Rossi M.D. [id number]
[2021-07-22] MEDS: iodixanol 320 mg/mL 100mL Btl IV (17:45)
[2021-07-22 17:53] LABS: Alanine Aminotransferase 79 U/L (0-33); Albumin Level 3.3 g/dL (3.5-5.2); Alkaline Phosphatase 786 IU/L (35-105); Anion Gap 40.4 (5-19); Aspartate Amino Transferase 404 U/L (0-32); Blood Urea Nitrogen 66 mg/dL (6-20); Calcium 8.1 mg/dL (8.5-10.5); Chloride 89 mmol/L (98-107); Globulin 2.6 g/dL (1.3-4.6); Glomerular Filtration Rate 42.4 mL/min (90-130); Glucose 161 mg/dL (65-115); Lipase 164 U/L (13-60); Osmolality Calculated 285 mOsm/kg (285-295); Potassium 6.4 mmol/L (3.5-5.1); Sodium 126 mmol/L (136-145); Total Bilirubin 1.4 mg/dL (0.15-1.2); Total Protein 5.9 g/dL (6.6-8.7)
[2021-07-22 18:02] LABS: Cortisol Random 45.84 ug/dL (2.47-19.5)
[2021-07-22 18:02] LABS: INR 6.64 (0.8-1.2)
[2021-07-22 18:03] LABS: Hematocrit 6.8 % (37.0-47.0); Hemoglobin 1.8 g/dL (11.5-15.3)
[2021-07-22 18:04] LABS: Platelet Count 28 10^3/cmm (130-400)
[2021-07-22 18:05] LABS: Carbon Dioxide 3 mmol/L (22-29)
[2021-07-22 18:50] LABS: Fibrinogen 51 mg/dL (174-498)
[2021-07-22] MEDS: sodium chloride 0.9% 1,000 ML 999 ML IV ×2 (19:20)
--- NOTE | 2021-07-22 19:20 | PC.RESP ---
abg results critical not able to fully come in due to pt condition. multiple abgs were obtained to verify results
--- NOTE | 2021-07-22 19:23 | PC.NURSE ---
Pt arrived unresponsive by EMS to ER at 1545 Pulse check 1557 CPR start 1557 Epi 1558 Pulse check 1559 Bicarb 1 amp 1600 Epi 1601 Pulse check 1601 D50 1 amp 1602 Pulse check 1603 - achieved ROSC Etomidate 20mg 1604 Intubation 1605 18 @ [facility] Staff present Idania Dias RN, Julio Root RN, Mariah Landeros RN, Pankaj Sutton RN, Dr Corbett
--- NOTE | 2021-07-22 20:55 | PC.NURSE ---
[employer] released body from ER. [facility] released body from donation due to PMH. [facility] Contacted.
[2021-07-22 23:24] LABS: Glucose Point of Care 211 mg/dL (70-110)
[2021-07-24 13:58] LABS: Blood Gas CCRB Time 1600
== END 2021-07-22 20:40 | disposition expired ==
LOC: ER 17:37 → ICU 18:21 → ER 20:39
PROVIDERS: Emergency Provider Emergency Medicine; PCP Family Medicine
DX: I46.9 Cardiac arrest, cause unspecified (principal); R41.82 Altered mental status, unspecified; N60.19 Diffuse cystic mastopathy of unspecified breast; R68.0 Hypothermia, not associated with low environmental temperature; I95.9 Hypotension, unspecified; R56.9 Unspecified convulsions; D69.9 Hemorrhagic condition, unspecified; E87.2 Acidosis
CPT/HCPCS: 31500; 36416; 36556; 36600; 51702; 70450; 71045; 71275; 74174; 80053; 80307; 81003; 82140; 82533; 82550; 82803; 82962; 83605; 83690; 84439; 84443; 84484; 85025; 85384; 85610; 85730; 87040; 87070; 87205; 92950; 93005; 94002; 94799; 96374; 99285; C1751; J0171; J1265; J1953; J3490; J7030; Q9967